=== PATIENT | male | born 1995 | race Caucasian/White ===

== ENCOUNTER 2022-02-26 10:00 | Emergency (ER) | payer OTHER ==
[2022-02-26 10:27] VITALS: BP 108/53; PULSE 65; TEMP 99.3; BMI 29.6
[2022-02-26] MEDS ORDERED: PHENAZOPYRIDINE HCL 100 MG TABLET (FP) PO ONE (11:26)
[2022-02-26 11:53] LABS: EPI CELLS 28 /uL (0-25.1); HYALINE CASTS 4 /uL (0-3.1); URINE APPEARANCE CLEAR; URINE BACTERIA 55 /uL (0-1359); URINE BILIRUBIN NEGATIVE (NEGATIVE); URINE COLOR YELLOW; URINE GLUCOSE (UA) NEGATIVE (NEGATIVE); URINE KETONE NEGATIVE (NEGATIVE); URINE LEUK ESTERASE NEGATIVE (NEGATIVE); URINE NITRITE NEGATIVE (NEGATIVE); URINE PROTEIN TRACE (NEGATIVE); URINE RBC 207 /uL (0-23.9); URINE UROBILINOGEN 0.2 mg/dL (0.2-1.0); URINE WBC 50 /uL (0-25.8)
[2022-02-26] MEDS ORDERED: PHENAZOPYRIDINE HCL 100 MG TABLET (FP) ONE (12:21)
[2022-02-26] MEDS ORDERED: NITROFURANTOIN MACROCRYSTAL 50 MG CAPSULE (FP) PO SCH (15:15)
== END 2022-02-26 15:09 | disposition home or self-care (01) ==
LOC: JER 10:00
DX: N20.0 Calculus of kidney (principal); N39.0 Urinary tract infection, site not specified; R31.9 Hematuria, unspecified
CPT/HCPCS: 36415; 74176-TC; 81003; 87086; 87491; 87591; 99284-25

== ENCOUNTER 2022-05-06 04:28 | Day surgery (SDC) | payer OTHER ==
[2022-05-06 11:52] VITALS: BMI 30.2
[2022-05-06] MEDS ORDERED: MIDAZOLAM HCL 2 MG/2 ML SINGLE DOSE VIAL ONE ×2 (13:33→13:50)
[2022-05-06 14:26] VITALS: TEMP 98.8
[2022-05-06 15:49] VITALS: BP 104/75; PULSE 74
== END 2022-05-06 16:01 | disposition home or self-care (01) ==
LOC: JASU-SURG 04:28
PROVIDERS: ATTEND Urology
PROC: 0TF4XZZ Fragmentation in Left Kidney Pelvis, External Approach (ICD-10-PCS; principal; 2022-05-06 14:00)
DX: N20.0 Calculus of kidney (principal)

== ENCOUNTER 2024-05-17 14:37 | Inpatient (IN) | payer OTHER ==
[2024-05-17] MEDS ORDERED: FAMOTIDINE 20 MG/50 ML IVPB 20 MG/50 ML MG IVPB ONE (17:24)
[2024-05-17] MEDS: SODIUM CHLORIDE 1,000 ML IV STA (17:31)
[2024-05-17] MEDS: FAMOTIDINE 20 MG/50 ML IVPB 20 MG/50 ML MG IVPB ONE (17:31)
[2024-05-17 17:47] LABS: BASO % 0.3 % (0-2.0); EOS % 0.8 % (0-4.5); HEMATOCRIT 41.8 % (35.4-49); HEMOGLOBIN 14.1 GM/dL (11.7-16.9); LYMPH % 11.6 % (8-40); MCH 28.9 pg (25.7-33.7); MCHC 33.7 g/dl (32.0-35.9); MEAN CELL VOLUME 85.8 fl (80-96); MEAN PLT VOLUME 7.6 fl (7.5-11.1); MONO % 10.3 % (3.8-10.2); PLATELET COUNT 390 10^3/uL (134-434); RBC 4.87 M/mm3 (4.00-5.60); WHITE BLOOD COUNT 15.3 K/mm3 (4.0-10.0)
[2024-05-17 17:53] LABS: INR 1.3 (0.83-1.09); PROTHROMBIN TIME (PATIENT) 14.6 SEC (9.7-13.0)
[2024-05-17 17:56] LABS: ACTIVATED PTT 31.3 SECONDS (25.2-36.5); CALCIUM 9.2 mg/dL (8.5-10.1)
[2024-05-17 17:57] LABS: ALBUMIN 3.8 g/dl (3.4-5.0)
[2024-05-17 17:59] LABS: CREATININE 1.1 mg/dL (0.55-1.3)
[2024-05-17 18:01] LABS: BILIRUBIN,TOTAL 0.9 mg/dL (0.2-1); TOT PROT 8.1 g/dl (6.4-8.2)
[2024-05-17] MEDS ORDERED: ACETAMINOPHEN INJECTION 100 ML IVPB ONE (19:48)
[2024-05-17] MEDS: ACETAMINOPHEN 1000 MG/100 ML BAG IVPB ONE (20:30)
[2024-05-18] MEDS ORDERED: SENNOSIDES 8.8 MG/5 ML SYRUP PO PRN (00:48)
[2024-05-18] MEDS ORDERED: ONDANSETRON 4 MG/2 ML VIAL IVPUSH PRN (01:00)
[2024-05-18] MEDS: SODIUM CHLORIDE 1,000 ML IV STA (01:10)
[2024-05-18 01:30] LABS: PH,URINE 5.5 (5.0-8.0); URINE APPEARANCE CLEAR; URINE BILIRUBIN NEGATIVE (NEGATIVE); URINE COLOR YELLOW; URINE GLUCOSE (UA) NEGATIVE (NEGATIVE); URINE KETONE TRACE (NEGATIVE); URINE LEUK ESTERASE NEGATIVE (NEGATIVE); URINE NITRITE NEGATIVE (NEGATIVE); URINE PROTEIN NEGATIVE (NEGATIVE)
[2024-05-18] MEDS: SODIUM CHLORIDE 1,000 ML IV SCH ×2 (01:55→12:24)
[2024-05-18] MEDS ORDERED: ACETAMINOPHEN INJECTION 100 ML IVPB ONE (05:32)
[2024-05-18] MEDS: ACETAMINOPHEN 1000 MG/100 ML BAG IVPB PRN (05:38)
[2024-05-18 07:17] LABS: HEMATOCRIT 36.1 % (35.4-49); HEMOGLOBIN 12.4 GM/dL (11.7-16.9); MCH 29.3 pg (25.7-33.7); MCHC 34.4 g/dl (32.0-35.9); MEAN CELL VOLUME 85.2 fl (80-96); MEAN PLT VOLUME 7.8 fl (7.5-11.1); PLATELET COUNT 356 10^3/uL (134-434); RBC 4.23 M/mm3 (4.00-5.60); RDW 12.9 % (11.9-15.9); WHITE BLOOD COUNT 12.8 K/mm3 (4.0-10.0)
[2024-05-18 07:40] LABS: POTASSIUM 3.8 mmol/L (3.5-5.1)
[2024-05-18 07:45] LABS: CALCIUM 8.1 mg/dL (8.5-10.1)
[2024-05-18 07:46] LABS: ALBUMIN 3.1 g/dl (3.4-5.0); BLOOD UREA NITROGEN 11.1 mg/dL (7-18); MAGNESIUM 2.1 mg/dL (1.8-2.4)
[2024-05-18 07:49] LABS: PHOSPHOROUS 2.5 mg/dL (2.5-4.9)
[2024-05-18 07:50] LABS: BILIRUBIN,TOTAL 0.8 mg/dL (0.2-1)
[2024-05-18 07:52] LABS: TOT PROT 6.4 g/dl (6.4-8.2)
[2024-05-18 09:17] LABS: METHADONE, UR NEGATIVE (NEGATIVE); PHENCYCLIDINE,URINE NEGATIVE (NEGATIVE); URINE BARBITURATES NEGATIVE (NEGATIVE); URINE BENZODIAZEPINES NEGATIVE (NEGATIVE)
[2024-05-18 09:18] LABS: COCAINE, UR NEGATIVE (NEGATIVE); OPIATES, URI NEGATIVE (NEGATIVE); URINE AMPHETAMINES NEGATIVE (NEGATIVE)
[2024-05-18 09:52] LABS: ERYTHROCYTE SEDIMENTATION RATE 73 mm/hr (0-10)
[2024-05-18] MEDS ORDERED: CEFTRIAXONE 1 GM in DEXTROSE 5%-WATER - 50 ML IVPB SCH (10:00)
[2024-05-18] MEDS: POLYETHYLENE GLYCOL (HEALTHYLAX) 3350 17 GM PACKET PO SCH (12:26)
[2024-05-18] MEDS: ENOXAPARIN NA (PORCINE) 40 MG/0.4 ML DISP.SYRIN SQ SCH (17:47)
[2024-05-18 22:37] LABS: HIV INTERPRETATION NEGATIVE (NEGATIVE)
[2024-05-19 08:51] LABS: BASO % 0.4 % (0-2.0); EOS % 3.7 % (0-4.5); HEMATOCRIT 38.2 % (35.4-49); HEMOGLOBIN 13.2 GM/dL (11.7-16.9); LYMPH % 16.7 % (8-40); MCH 29.3 pg (25.7-33.7); MCHC 34.6 g/dl (32.0-35.9); MEAN CELL VOLUME 84.9 fl (80-96); MEAN PLT VOLUME 7.3 fl (7.5-11.1); MONO % 12.4 % (3.8-10.2); NEUT % 66.8 % (42.8-82.8); PLATELET COUNT 388 10^3/uL (134-434); RDW 12.9 % (11.9-15.9)
[2024-05-19 09:09] LABS: POTASSIUM 3.9 mmol/L (3.5-5.1)
[2024-05-19 09:25] LABS: CALCIUM 8.7 mg/dL (8.5-10.1)
[2024-05-19 09:26] LABS: BLOOD UREA NITROGEN 7.9 mg/dL (7-18)
[2024-05-19 09:30] LABS: BILIRUBIN,TOTAL 0.6 mg/dL (0.2-1); CREATININE 0.9 mg/dL (0.55-1.3)
[2024-05-19 09:31] LABS: TOT PROT 6.5 g/dl (6.4-8.2)
[2024-05-19] MEDS: CEFTRIAXONE 1 GM in DEXTROSE 5%-WATER - 50 ML IVPB SCH (10:06)
[2024-05-19] MEDS: SODIUM CHLORIDE 0.9% 1000 ML INFUS.BAG IV ONE (10:37)
[2024-05-19] MEDS: CEFTRIAXONE 1 GM in DEXTROSE 5%-WATER - 50 ML IVPB ONE (15:35)
[2024-05-19] MEDS: ACETAMINOPHEN 325 MG TABLET (FP) PO PRN (18:13)
[2024-05-20 08:18] LABS: BASO % 0.2 % (0-2.0); EOS % 2.4 % (0-4.5); HEMATOCRIT 36.9 % (35.4-49); HEMOGLOBIN 12.9 GM/dL (11.7-16.9); LYMPH % 13.6 % (8-40); MCH 29.7 pg (25.7-33.7); MCHC 35.1 g/dl (32.0-35.9); MEAN CELL VOLUME 84.7 fl (80-96); MEAN PLT VOLUME 7.3 fl (7.5-11.1); MONO % 11.5 % (3.8-10.2); NEUT % 72.3 % (42.8-82.8); PLATELET COUNT 403 10^3/uL (134-434); RBC 4.35 M/mm3 (4.00-5.60); RDW 13.4 % (11.9-15.9); WHITE BLOOD COUNT 10.2 K/mm3 (4.0-10.0)
[2024-05-20 08:33] LABS: CALCIUM 8.5 mg/dL (8.5-10.1)
[2024-05-20 08:34] LABS: ALBUMIN 2.9 g/dl (3.4-5.0); BLOOD UREA NITROGEN 9.7 mg/dL (7-18)
[2024-05-20 08:37] LABS: CREATININE 0.9 mg/dL (0.55-1.3)
[2024-05-20 08:39] LABS: BILIRUBIN,TOTAL 0.5 mg/dL (0.2-1); TOT PROT 6.7 g/dl (6.4-8.2)
[2024-05-20] MEDS: SODIUM CHLORIDE 500 ML IV STA (09:45)
[2024-05-20] MEDS: CEFTRIAXONE 2 GM in DEXTROSE 5%-WATER 100 ML IVPB SCH (09:46)
[2024-05-20] MEDS ORDERED: BISACODYL 5 MG TABLET.DR (FP) PO ONE (16:00)
[2024-05-20] MEDS ORDERED: PEG 3350/NA SULF BICARB CL/KCL 4000 ML SOLN.RECON PO ONE (17:00)
[2024-05-21 09:53] LABS: BASO % 0.2 % (0-2.0); EOS % 2.4 % (0-4.5); HEMATOCRIT 41.4 % (35.4-49); HEMOGLOBIN 14.2 GM/dL (11.7-16.9); LYMPH % 18.5 % (8-40); MCH 29.3 pg (25.7-33.7); MCHC 34.2 g/dl (32.0-35.9); MEAN CELL VOLUME 85.6 fl (80-96); MEAN PLT VOLUME 7.4 fl (7.5-11.1); MONO % 10.7 % (3.8-10.2); NEUT % 68.2 % (42.8-82.8); PLATELET COUNT 453 10^3/uL (134-434); RBC 4.84 M/mm3 (4.00-5.60); RDW 13.3 % (11.9-15.9); WHITE BLOOD COUNT 11.9 K/mm3 (4.0-10.0)
[2024-05-21 10:04] LABS: INR 1.4 (0.83-1.09); PROTHROMBIN TIME (PATIENT) 15.7 SEC (9.7-13.0)
[2024-05-21 10:20] LABS: POTASSIUM 4.2 mmol/L (3.5-5.1)
[2024-05-21 10:26] LABS: ALBUMIN 3.3 g/dl (3.4-5.0); CALCIUM 8.9 mg/dL (8.5-10.1)
[2024-05-21 10:27] LABS: BLOOD UREA NITROGEN 10.2 mg/dL (7-18)
[2024-05-21 10:28] LABS: CREATININE 0.9 mg/dL (0.55-1.3)
[2024-05-21 10:29] LABS: BILIRUBIN,TOTAL 0.5 mg/dL (0.2-1)
[2024-05-21 10:30] LABS: TOT PROT 7.4 g/dl (6.4-8.2)
[2024-05-22 09:34] LABS: BASO % 0.4 % (0-2.0); EOS % 2.9 % (0-4.5); HEMATOCRIT 36.8 % (35.4-49); HEMOGLOBIN 12.8 GM/dL (11.7-16.9); MCH 29.7 pg (25.7-33.7); MCHC 34.7 g/dl (32.0-35.9); MEAN CELL VOLUME 85.4 fl (80-96); MEAN PLT VOLUME 7.2 fl (7.5-11.1); MONO % 10.6 % (3.8-10.2); NEUT % 64.1 % (42.8-82.8); PLATELET COUNT 448 10^3/uL (134-434); RBC 4.31 M/mm3 (4.00-5.60); RDW 13.2 % (11.9-15.9)
[2024-05-22 10:03] LABS: POTASSIUM 3.7 mmol/L (3.5-5.1)
[2024-05-22 10:11] LABS: CALCIUM 7.7 mg/dL (8.5-10.1)
[2024-05-22 10:12] LABS: ALBUMIN 2.8 g/dl (3.4-5.0); BLOOD UREA NITROGEN 7.8 mg/dL (7-18)
[2024-05-22 10:15] LABS: CREATININE 0.8 mg/dL (0.55-1.3)
[2024-05-22 10:17] LABS: TOT PROT 6.1 g/dl (6.4-8.2)
[2024-05-22 10:18] LABS: BILIRUBIN,TOTAL 0.5 mg/dL (0.2-1)
[2024-05-23 12:48] VITALS: BMI 31.0
[2024-05-24 09:02] LABS: HEMATOCRIT 38.5 % (35.4-49); HEMOGLOBIN 13.4 GM/dL (11.7-16.9); INR 1.32 (0.83-1.09); MCH 29.6 pg (25.7-33.7); MCHC 34.9 g/dl (32.0-35.9); MEAN CELL VOLUME 84.7 fl (80-96); MEAN PLT VOLUME 7.1 fl (7.5-11.1); PLATELET COUNT 511 10^3/uL (134-434); PROTHROMBIN TIME (PATIENT) 15.1 SEC (9.7-13.0); RBC 4.55 M/mm3 (4.00-5.60); RDW 13.1 % (11.9-15.9); WHITE BLOOD COUNT 10.8 K/mm3 (4.0-10.0)
[2024-05-24 09:15] LABS: POTASSIUM 4.3 mmol/L (3.5-5.1)
[2024-05-24 09:18] LABS: ALBUMIN 3.1 g/dl (3.4-5.0); BLOOD UREA NITROGEN 10.5 mg/dL (7-18); CALCIUM 8.8 mg/dL (8.5-10.1)
[2024-05-24 09:21] LABS: PHOSPHOROUS 3.6 mg/dL (2.5-4.9)
[2024-05-24 09:23] LABS: BILIRUBIN,TOTAL 0.4 mg/dL (0.2-1)
[2024-05-24 09:34] LABS: MAGNESIUM 2.1 mg/dL (1.8-2.4)
[2024-05-24] MEDS: SODIUM CHLORIDE 500 ML IV SCH (10:10)
[2024-05-24] MEDS: FENTANYL CITRATE/PF 50 MCG/ML VIAL IVPUSH ONE ×2 (10:20→10:22)
[2024-05-24] MEDS: ACETAMINOPHEN 325 MG TABLET (FP) PO PRN (22:49)
[2024-05-25 08:00] LABS: HEMATOCRIT 40.3 % (35.4-49); HEMOGLOBIN 13.5 GM/dL (11.7-16.9); MCH 28.8 pg (25.7-33.7); MCHC 33.5 g/dl (32.0-35.9); MEAN CELL VOLUME 85.8 fl (80-96); MEAN PLT VOLUME 7.1 fl (7.5-11.1); PLATELET COUNT 497 10^3/uL (134-434); WHITE BLOOD COUNT 8.6 K/mm3 (4.0-10.0)
[2024-05-25 08:21] LABS: POTASSIUM 4.5 mmol/L (3.5-5.1)
[2024-05-25 08:31] LABS: BLOOD UREA NITROGEN 11.2 mg/dL (7-18); CALCIUM 8.5 mg/dL (8.5-10.1)
[2024-05-25 08:35] LABS: CREATININE 0.8 mg/dL (0.55-1.3)
[2024-05-25 11:09] LABS: BILIRUBIN,DIRECT 0.1 mg/dL (0.0-0.2)
[2024-05-25 11:11] LABS: BILIRUBIN,TOTAL 0.3 mg/dL (0.2-1); TOT PROT 6.8 g/dl (6.4-8.2)
[2024-05-26 09:28] LABS: HEMATOCRIT 44.2 % (35.4-49); HEMOGLOBIN 15.2 GM/dL (11.7-16.9); MCH 29.2 pg (25.7-33.7); MCHC 34.3 g/dl (32.0-35.9); MEAN CELL VOLUME 85.1 fl (80-96); MEAN PLT VOLUME 7.1 fl (7.5-11.1); PLATELET COUNT 616 10^3/uL (134-434); RDW 13.2 % (11.9-15.9); WHITE BLOOD COUNT 8.4 K/mm3 (4.0-10.0)
[2024-05-26 09:53] LABS: POTASSIUM 4.4 mmol/L (3.5-5.1)
[2024-05-26 09:55] LABS: CALCIUM 9.2 mg/dL (8.5-10.1)
[2024-05-26 09:56] LABS: ALBUMIN 3.5 g/dl (3.4-5.0); BLOOD UREA NITROGEN 13.4 mg/dL (7-18)
[2024-05-26 09:58] LABS: BILIRUBIN,DIRECT 0.1 mg/dL (0.0-0.2)
[2024-05-26 09:59] LABS: PHOSPHOROUS 3.4 mg/dL (2.5-4.9)
[2024-05-26 10:00] LABS: BILIRUBIN,TOTAL 0.6 mg/dL (0.2-1); TOT PROT 7.7 g/dl (6.4-8.2)
[2024-05-27] MEDS: MELATONIN 5 MG TABLETS PO ONE (06:19)
[2024-05-27 08:52] LABS: HEMATOCRIT 42.5 % (35.4-49); HEMOGLOBIN 14.8 GM/dL (11.7-16.9); MCH 29.6 pg (25.7-33.7); MCHC 34.9 g/dl (32.0-35.9); MEAN CELL VOLUME 84.7 fl (80-96); MEAN PLT VOLUME 6.8 fl (7.5-11.1); PLATELET COUNT 558 10^3/uL (134-434); RBC 5.02 M/mm3 (4.00-5.60); RDW 13.3 % (11.9-15.9)
[2024-05-27 08:59] LABS: INR 1.21 (0.83-1.09); PROTHROMBIN TIME (PATIENT) 13.6 SEC (9.7-13.0)
[2024-05-27 09:02] LABS: ACTIVATED PTT 35.3 SECONDS (25.2-36.5)
[2024-05-27 09:17] LABS: POTASSIUM 4.7 mmol/L (3.5-5.1)
[2024-05-27 09:21] LABS: BLOOD UREA NITROGEN 14.8 mg/dL (7-18); CALCIUM 9.3 mg/dL (8.5-10.1)
[2024-05-27 09:24] LABS: CREATININE 0.9 mg/dL (0.55-1.3); PHOSPHOROUS 3.6 mg/dL (2.5-4.9)
[2024-05-27 18:26] VITALS: RESP 20
[2024-05-28 14:21] VITALS: BP 110/57; PULSE 70; TEMP 98.5
[2024-05-28] MEDS: IVERMECTIN 3 MG TABLET PO ONE (14:37)
== END 2024-05-28 17:09 | disposition home or self-care (01) | DRG 720 ==
LOC: JER 14:37 → JERBED 22:58 → J5S 05-18 09:51
PROVIDERS: ADMIT Internal Medicine
PROC: 0F903ZZ Drainage of Liver, Percutaneous Approach (ICD-10-PCS; principal; 2024-05-24)
PROC: 02HV33Z Insertion of Infusion Device into Superior Vena Cava, Percutaneous Approach (ICD-10-PCS; 2024-05-28)
PROC: B518ZZA Fluoroscopy of Superior Vena Cava, Guidance (ICD-10-PCS; 2024-05-28)
DX: A41.89 Other specified sepsis (principal); K75.0 Abscess of liver; D72.829 Elevated white blood cell count, unspecified; R00.0 Tachycardia, unspecified; R93.3 Abnormal findings on diagnostic imaging of other parts of digestive tract; R10.11 Right upper quadrant pain; B78.9 Strongyloidiasis, unspecified; A06.89 Other amebic infections; J45.909 Unspecified asthma, uncomplicated
CPT/HCPCS: 0241U-QW; 36415; 36569; 49405; 71250-TC; 74177-TC; 74183-TC; 76705-TC; 80048; 80053; 80076; 80307; 81003; 82105; 82248; 82378; 83690; 83735; 84100; 85025; 85027; 85610; 85651; 85730; 86140; 86480; 86682; 86704; 86706; 86708; 86709; 86753; 86803; 86850; 86900; 86901; 87040; 87070; 87075; 87086; 87102; 87116; 87205; 87206; 87207; 87209; 87210; 87340; 87389; 87517; 88108; 88305-TC; 93005; 93010; 93306-TC; 99285-25; J0131; Q9967

== ENCOUNTER 2024-06-01 18:04 | Emergency (ER) | payer OTHER ==
[2024-06-01 18:40] VITALS: BP 114/70; PULSE 66; RESP 20; TEMP 98.2; BMI 33.0
[2024-06-01 19:54] LABS: HEMATOCRIT 48.3 % (35.4-49); HEMOGLOBIN 15.8 G/dL (11.7-16.9); MCH 28.4 pg (25.7-33.7); MCHC 32.7 g/dl (32.0-35.9); MEAN CELL VOLUME 86.8 fl (80-96); MEAN PLT VOLUME 7.4 fl (7.5-11.1); RBC 5.56 10^6/uL (4.00-5.60); RDW 14.3 % (11.9-15.9); WHITE BLOOD COUNT 9.4 10^3/uL (4.0-10.8)
[2024-06-01 20:13] LABS: ALBUMIN 4.2 g/dl (3.4-5.0); BILIRUBIN,TOTAL 0.3 mg/dl (0.2-1); CALCIUM 9.4 mg/dl (8.5-10.1); CREATININE 0.9 mg/dl (0.6-1.3); POTASSIUM 3.9 mmol/L (3.5-5.1); TOT PROT 7.2 g/dl (6.4-8.2)
[2024-06-01] MEDS ORDERED: ACETAMINOPHEN 500 MG TABLET (FP) ONE (20:16)
[2024-06-01] MEDS: ACETAMINOPHEN 500 MG TABLET (FP) PO ONE (20:17)
== END 2024-06-01 21:24 | disposition home or self-care (01) ==
LOC: FER 18:04
DX: T82.848A Pain due to vascular prosthetic devices, implants and grafts, initial encounter (principal)
CPT/HCPCS: 36415; 80053; 85027; 93971; 99284-25

== ENCOUNTER 2024-12-04 19:33 | Emergency (ER) | payer OTHER ==
[2024-12-04 19:59] VITALS: BP 115/65; PULSE 78; RESP 18; TEMP 98.4; BMI 31.1
== END 2024-12-04 20:30 | disposition home or self-care (01) ==
LOC: FER 19:33
DX: U07.1 COVID-19 (principal); J02.9 Acute pharyngitis, unspecified; R50.9 Fever, unspecified
CPT/HCPCS: 0241U-QW; 87651; 99283-25